=== PATIENT | male | born 1980 | race American Indian/Alaskan Native ===

== ENCOUNTER 2018-02-28 18:31 | Inpatient (IN) | payer SELFPAY ==
[2018-02-28] MEDS ORDERED: NACL 0.9% 1000 ML 1,000 ML IV ONE ×2 (19:10→19:42)
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
[2018-02-28 19:26] LABS: Basophils # (Auto) 0.1 K/mm3 (0.0-0.1); Basophils % (Auto) 0.5 % (0.0-1.8); Hematocrit 57.3 % (35.5-45.6); Hemoglobin 18.4 gm/dl (11.8-15.2); Lymphocytes # (Auto) 1.1 K/mm3 (1.2-5.4); Lymphocytes % (Auto) 7.7 % (13.4-35.0); Mean Corpuscular HGB Conc 32 % (32-34); Mean Corpuscular Hemoglobin 28 pg (28-32); Mean Corpuscular Volume 87 fl (84-94); Monocytes # (Auto) 0.6 K/mm3 (0.0-0.8); Monocytes % (Auto) 4.3 % (0.0-7.3); Platelet Count 302 K/mm3 (140-440); Red Cell Distribution Width 13.4 % (13.2-15.2)
[2018-02-28 19:36] LABS: INR 0.94 (0.87-1.13)
[2018-02-28] MEDS ORDERED: HumuLIN R IV ONE (19:43)
[2018-02-28] MEDS ORDERED: ZOFRAN IV ONE (19:44)
[2018-02-28 20:38] LABS: Bilirubin,Urine NEG (Negative); Blood,Urine NEG (Negative); Color,Urine Straw (Yellow); Mucus,Urine FEW /HPF; Protein,Urine <15 mg/dL mg/dL (Negative); Urobilinogen,Urine < 2.0 mg/dL (<2.0)
[2018-02-28 20:41] LABS: Creatine Kinase MB 1.7 ng/mL (0.0-4.0)
[2018-02-28 20:43] LABS: Alanine Aminotransferase 27 units/L (7-56); Albumin 4.6 g/dL (3.9-5); BUN/Creatinine Ratio 32; Blood Urea Nitrogen 38 mg/dL (9-20); Calcium 9.6 mg/dL (8.4-10.2); Hemolysis Index 8; Lipase 41 units/L (13-60)
--- NOTE | 2018-02-28 21:21 | Cat Scan Report ---
FINAL REPORT PROCEDURE: CT ANGIO CHEST TECHNIQUE: Computerized axial tomographic angiography of the chest and pulmonary arteries was performed after the IV injection of iodinated nonionic contrast. The image data was postprocessed using maximum intensity projection (MIP) and 2-dimensional multiplanar reformatted (MPR) techniques. The examination is specifically tailored to the evaluation of the pulmonary arteries per clinical request. HISTORY: Short of breath 786.09, chest pain 786.50, chest pain, shortness of breath COMPARISON: No prior studies are available for comparison. FINDINGS: Heart and pericardium: Normal. Thoracic aorta: Normal. Pulmonary vasculature: Normal. No pulmonary emboli. Lymph nodes: No enlarged thoracic lymph nodes. Lungs: Normal. Pleural space: No effusion, thickening, or pneumothorax. Musculoskeletal structures: No significant abnormality. Upper abdominal structures: No significant abnormality. IMPRESSION: Normal Examination.
[2018-02-28] MEDS ORDERED: ASPIRIN PO ONE (21:57)
--- NOTE | 2018-02-28 23:38 | History and Physical Report ---
History of Present Illness Date of examination: 02/28/18 History of present illness: 37-year-old male with a history of diabetes, TBI discuss emergency room with complaints of multiple episodes of nausea vomiting 4 days. He has been drinking lots of sodas and cool aid, he hasn't taken any medication in over one year for diabetes. Admits to 25 pound weight loss. He complains of chest pain in the epigastric area which she describes as a sharp pain, intermittent in nature, unable to say how long it lasts for, intensity 4/10, no radiation, he can identify exacerbating or relieving factors. Denies shortness of breath, diaphoresis or palpitation Review of systems Constitutional: no weight loss, chills, fever Ears, eyes, nose, mouth and throat: no nasal congestion, no nasal discharge, no sinus pressure, no vision change, no red eye. Neck: No neck pain or rigidity. Cardiovascular: no palpitations Respiratory: no cough, shortness of breath Gastrointestinal: no abdominal pain hematochezia Genitourinary : no frequency , no hematuria Musculoskeletal: no joint swelling or muscle ache Integumentary: no rash, no pruritis Neurological: no parathesias, no numbness, no focal weakness Endocrine: no cold or heat intolerance, no polyuria or polydipsia Hematologic/Lymphatic: no easy bruising, no easy bleeding, no gland swelling Allergic/Immunologic: no urticaria, no angioedema. PAST MEDICAL HISTORY:diabetes, TBI PAST SURGICAL HISTORY: Craniotomy SOCIAL HISTORY: No alcohol, no drugs, tobacco FAMILY HISTORY: Hypertension Medications and Allergies Allergies Allergy/AdvReac Type Severity Reaction Status Date / Time shrimp AdvReac Swelling Verified 08/09/15 08:44 Home Medications Medication Instructions Recorded Confirmed Last Taken Type glyBURIDE [Glyburide] 5 mg PO DAILY #90 tablet 08/11/15 02/28/18 Unknown Rx metFORMIN [Glucophage] 850 mg PO BID #90 tablet 08/11/15 02/28/18 Unknown Rx Exam - Physical Exam Narrative exam: Gen. appearance: Patient lying in bed, no apparent distress HEENT: Normocephalic, atraumatic, pupils equally round and reactive to light, extraocular movement intact, and no sclericterus,. No JVD or thyromegaly or nodule,neck supple, no carotid bruit ,mucous membranes moist, no exudate or erythema Heart: S1, S2, regular rate and rhythm Lungs: Clear bilaterally, breathing comfortable Abdomen: Positive bowel sounds, non-tender, nondistended, no organomegaly Extremity:no edema cyanosis, clubbing Skin: no rash, dry, warm Neuro: Oriented 3, cranial nerves II-12 intact, speech is fluent, motor and sensory intact - Constitutional Vitals: Temp Pulse Resp BP Pulse Ox 99.6 F 115 H 20 150/85 97 02/28/18 18:47 02/28/18 23:00 02/28/18 23:00 02/28/18 23:00 02/28/18 23:00 Results - Labs CBC & Chem 7: 02/28/18 19:03 02/28/18 19:13 Labs: Abnormal lab results 02/28/18 02/28/18 02/28/18 Range/Units 19:03 19:12 19:13 WBC 14.0 H (4.5-11.0) K/mm3 RBC 6.60 H (3.65-5.03) M/mm3 Hgb 18.4 H (11.8-15.2) gm/dl Hct 57.3 H (35.5-45.6) % Lymph % (Auto) 7.7 L (13.4-35.0) % Lymph # 1.1 L (1.2-5.4) K/mm3 Seg Neutrophils % 87.5 H (40.0-70.0) % Seg Neutrophils # 12.3 H (1.8-7.7) K/mm3 APTT 20.0 L (24.2-36.6) Sec. D-Dimer 633.35 H (0-234) ng/mlDDU Chloride 90.7 L (98-107) mmol/L Carbon Dioxide 19 L (22-30) mmol/L BUN 38 H (9-20) mg/dL Glucose 517 H* (75-100) mg/dL POC Glucose (70-105) Total Bilirubin 2.50 H (0.1-1.2) mg/dL 02/28/18 02/28/18 Range/Units 19:33 20:50 WBC (4.5-11.0) K/mm3 RBC (3.65-5.03) M/mm3 Hgb (11.8-15.2) gm/dl Hct (35.5-45.6) % Lymph % (Auto) (13.4-35.0) % Lymph # (1.2-5.4) K/mm3 Seg Neutrophils % (40.0-70.0) % Seg Neutrophils # (1.8-7.7) K/mm3 APTT (24.2-36.6) Sec. D-Dimer (0-234) ng/mlDDU Chloride (98-107) mmol/L Carbon Dioxide (22-30) mmol/L BUN (9-20) mg/dL Glucose (75-100) mg/dL POC Glucose 428 H 376 H (70-105) Total Bilirubin (0.1-1.2) mg/dL - Imaging and Cardiology EKG: image reviewed CT scan - chest: report reviewed Assessment and Plan Assessment Nausea and vomiting secondary to diabetes uncontrolled Chest pain Dehydration Leukocytosis likely stress induced Diabetes uncontrolled TBI Plan Admit medicine Start IV fluid antiemetics Check cardiac enzymes, stress test Check fingersticks and initiate insulin sliding scale DVT prophylaxis
[2018-03-01] MEDS ORDERED: D50W (25GM) Syringe IV PRN (03:01)
[2018-03-01] MEDS ORDERED: SODIUM CHLORIDE FLUSH SYRINGE 10 ML IV PRN (03:01)
[2018-03-01] MEDS ORDERED: TYLENOL PO PRN (03:01)
[2018-03-01] MEDS ORDERED: PERCOCET 5/325 PO PRN (03:01)
[2018-03-01] MEDS ORDERED: NACL 0.9% 1000 ML 1,000 ML IV SCH (04:00)
[2018-03-01 06:54] LABS: Basophils % (Auto) 0.2 % (0.0-1.8); Hematocrit 48.8 % (35.5-45.6); Hemoglobin 15.7 gm/dl (11.8-15.2); Lymphocytes # (Auto) 1.6 K/mm3 (1.2-5.4); Lymphocytes % (Auto) 11.2 % (13.4-35.0); Mean Corpuscular HGB Conc 32 % (32-34); Mean Corpuscular Hemoglobin 28 pg (28-32); Mean Corpuscular Volume 86 fl (84-94); Monocytes # (Auto) 0.9 K/mm3 (0.0-0.8); Monocytes % (Auto) 6.6 % (0.0-7.3); Platelet Count 262 K/mm3 (140-440); Red Blood Count 5.64 M/mm3 (3.65-5.03); Red Cell Distribution Width 13.2 % (13.2-15.2)
[2018-03-01 07:23] LABS: BUN/Creatinine Ratio 36; Blood Urea Nitrogen 29 mg/dL (9-20); Calcium 8.7 mg/dL (8.4-10.2); Hemolysis Index 10
[2018-03-01 07:24] LABS: Creatine Kinase MB 1.9 ng/mL (0.0-4.0)
[2018-03-01] MEDS: APRESOLINE IV PRN (08:35)
--- NOTE | 2018-03-01 09:15 | Progress Note ---
Assessment and Plan Assessment and plan: --Atypical chest pain; noncardiac Stress test negative, chest pain probably secondary to gastroesophageal reflux disease, continue current management --Gastroesophageal reflux disease; Protonix, supportive care --Acute bronchitis; empiric antibiotics, supportive care --Possible UTI; empiric antibiotics, follow cultures, IV fluids --Uncontrolled diabetes mellitus; secondary to noncompliance Patient was on glipizide and metformin, non-compliant. Resume oral hypoglycemics Accu-Chek sliding scale coverage and ADA diet, check A1c --Uncontrolled hypertension; noncompliance Continue current antihypertensives and when necessary medications --DVT prophylaxis; Lovenox Patient is stable to be transferred out of telemetry to medical floor Possible discharge in 1-2 days if stable History Interval history: Patient seen and examined medical records reviewed Patient had stress test which was negative for reversible ischemia Patient complains of mild discomfort in urination, as well as slight chest congestion Patient had elevated WBC, UA consistent with UTI Patient feels better complaints of generalized weakness Vital signs reviewed Hospitalist Physical - Constitutional Vitals: Temp Pulse Resp BP Pulse Ox 98.0 F 110 H 20 170/102 95 03/01/18 08:20 03/01/18 08:20 03/01/18 08:20 03/01/18 08:20 03/01/18 08:20 General appearance: Present: no acute distress, cachectic, disheveled - EENT Eyes: Present: PERRL, EOM intact - Neck Neck: Present: supple, normal ROM - Respiratory Respiratory effort: normal Respiratory: bilateral: diminished, negative: rales, rhonchi, wheezing - Cardiovascular Rhythm: regular Heart Sounds: Present: S1 & S2 - Extremities Extremities: no ischemia, No edema - Abdominal General gastrointestinal: soft, non-tender, non-distended, normal bowel sounds - Integumentary Integumentary: Present: clear, warm - Psychiatric Psychiatric: appropriate mood/affect, cooperative - Neurologic Neurologic: moves all extremities Results - Labs CBC & Chem 7: 03/01/18 06:37 03/01/18 06:37 Labs: Laboratory Last Values WBC 13.9 K/mm3 (4.5-11.0) H 03/01/18 06:37 RBC 5.64 M/mm3 (3.65-5.03) H 03/01/18 06:37 Hgb 15.7 gm/dl (11.8-15.2) H 03/01/18 06:37 Hct 48.8 % (35.5-45.6) H D 03/01/18 06:37 MCV 86 fl (84-94) 03/01/18 06:37 MCH 28 pg (28-32) 03/01/18 06:37 MCHC 32 % (32-34) 03/01/18 06:37 RDW 13.2 % (13.2-15.2) 03/01/18 06:37 Plt Count 262 K/mm3 (140-440) 03/01/18 06:37 Lymph % (Auto) 11.2 % (13.4-35.0) L 03/01/18 06:37 Brantley % (Auto) 6.6 % (0.0-7.3) 03/01/18 06:37 Eos % (Auto) 0.0 % (0.0-4.3) 03/01/18 06:37 Baso % (Auto) 0.2 % (0.0-1.8) 03/01/18 06:37 Lymph # 1.6 K/mm3 (1.2-5.4) 03/01/18 06:37 Brantley # 0.9 K/mm3 (0.0-0.8) H 03/01/18 06:37 Eos # 0.0 K/mm3 (0.0-0.4) 03/01/18 06:37 Baso # 0.0 K/mm3 (0.0-0.1) 03/01/18 06:37 Seg Neutrophils % 82.0 % (40.0-70.0) H 03/01/18 06:37 Seg Neutrophils # 11.4 K/mm3 (1.8-7.7) H 03/01/18 06:37 PT 13.0 Sec. (12.2-14.9) 02/28/18 19:12 INR 0.94 (0.87-1.13) 02/28/18 19:12 APTT 20.0 Sec. (24.2-36.6) L 02/28/18 19:12 D-Dimer 633.35 ng/mlDDU (0-234) H 02/28/18 19:12 VBG pH 7.377 (7.320-7.420) 02/28/18 19:14 Sodium 143 mmol/L (137-145) 03/01/18 06:37 Potassium 4.6 mmol/L (3.6-5.0) 03/01/18 06:37 Chloride 101.5 mmol/L (98-107) 03/01/18 06:37 Carbon Dioxide 19 mmol/L (22-30) L 03/01/18 06:37 Anion Gap 27 mmol/L 03/01/18 06:37 BUN 29 mg/dL (9-20) H 03/01/18 06:37 Creatinine 0.8 mg/dL (0.8-1.5) 03/01/18 06:37 Estimated GFR > 60 ml/min 03/01/18 06:37 BUN/Creatinine Ratio 36 % 03/01/18 06:37 Glucose 314 mg/dL (75-100) H 03/01/18 06:37 POC Glucose 287 (70-105) H 03/01/18 06:21 Calcium 8.7 mg/dL (8.4-10.2) 03/01/18 06:37 Total Bilirubin 2.50 mg/dL (0.1-1.2) H 02/28/18 19:13 AST 28 units/L (5-40) 02/28/18 19:13 ALT 27 units/L (7-56) 02/28/18 19:13 Alkaline Phosphatase 76 units/L (35-129) 02/28/18 19:13 Ammonia 44.0 umol/L (25-60) 02/28/18 19:03 Total Creatine Kinase 217 units/L (55-170) H 03/01/18 06:37 CK-MB (CK-2) 1.9 ng/mL (0.0-4.0) 03/01/18 06:37 CK-MB (CK-2) Rel Index 0.8 (0-4) 03/01/18 06:37 Troponin T < 0.010 ng/mL (0.00-0.029) 03/01/18 06:37 Total Protein 8.0 g/dL (6.3-8.2) 02/28/18 19:13 Albumin 4.6 g/dL (3.9-5) 02/28/18 19:13 Albumin/Globulin Ratio 1.4 % 02/28/18 19:13 Lipase 41 units/L (13-60) 02/28/18 19:13 Urine Color Straw (Yellow) 02/28/18 20:07 Urine Turbidity Clear (Clear) 02/28/18 20:07 Urine pH 5.0 (5.0-7.0) 02/28/18 20:07 Ur Specific Silvis 1.029 (1.003-1.030) 02/28/18 20:07 Urine Protein <15 mg/dl mg/dL (Negative) 02/28/18 20:07 Urine Glucose (UA) >=500 mg/dL (Negative) 02/28/18 20:07 Urine Ketones 80 mg/dL (Negative) 02/28/18 20:07 Urine Blood Neg (Negative) 02/28/18 20:07 Urine Nitrite Neg (Negative) 02/28/18 20:07 Urine Bilirubin Neg (Negative) 02/28/18 20:07 Urine Urobilinogen < 2.0 mg/dL (<2.0) 02/28/18 20:07 Ur Leukocyte Esterase Neg (Negative) 02/28/18 20:07 Urine WBC (Auto) 2.0 /HPF (0.0-6.0) 02/28/18 20:07 Urine RBC (Auto) 3.0 /HPF (0.0-6.0) 02/28/18 20:07 U Epithel Cells (Auto) < 1.0 /HPF (0-13.0) 02/28/18 20:07 Urine Mucus Few /HPF 02/28/18 20:07
[2018-03-01] MEDS ORDERED: LEXISCAN IV ONE ×2 (09:19→09:24)
[2018-03-01] MEDS: ZOFRAN IV PRN (10:17)
[2018-03-01] MEDS ORDERED: ZOFRAN ONE (10:18)
[2018-03-01] MEDS ORDERED: PNEUMOVAX 23 IM ONE (12:00)
[2018-03-01] MEDS: SODIUM CHLORIDE FLUSH SYRINGE 10 ML IV SCH ×2 (15:46→22:41)
[2018-03-01] MEDS: LOVENOX SUB-Q SCH (15:46)
[2018-03-01] MEDS ORDERED: GLUCOPHAGE PO ONE (17:23)
[2018-03-01] MEDS: ZESTRIL PO SCH (22:41)
[2018-03-02] MEDS: HumaLOG SUB-Q SCH ×5 (00:13→21:27)
--- NOTE | 2018-03-02 00:45 | Treadmill Report ---
THALLIUM STRESS TEST LEFT VENTRICLE: Left ventricular chamber size is within normal spread. Perfusion study demonstrates homogeneous uptake of the tracer in all segments, no significant perfusion defects identified. Gated analysis demonstrates normal left ventricular systolic function, ejection fraction of 60%. CONCLUSION: Normal myocardial perfusion study. JOB# [id number] CA/NTS
[2018-03-02] MEDS: APRESOLINE IV PRN (02:22)
[2018-03-02 06:33] LABS: Basophils % (Auto) 0.1 % (0.0-1.8); Eosinophils # (Auto) 0.1 K/mm3 (0.0-0.4); Eosinophils % (Auto) 0.5 % (0.0-4.3); Hemoglobin 15.2 gm/dl (11.8-15.2); Lymphocytes % (Auto) 17.9 % (13.4-35.0); Mean Corpuscular HGB Conc 33 % (32-34); Mean Corpuscular Hemoglobin 28 pg (28-32); Mean Corpuscular Volume 85 fl (84-94); Monocytes # (Auto) 0.7 K/mm3 (0.0-0.8); Monocytes % (Auto) 6.5 % (0.0-7.3); Platelet Count 236 K/mm3 (140-440); Red Blood Count 5.44 M/mm3 (3.65-5.03); Red Cell Distribution Width 12.8 % (13.2-15.2)
[2018-03-02 07:00] LABS: BUN/Creatinine Ratio 31; Blood Urea Nitrogen 22 mg/dL (9-20); Calcium 8.5 mg/dL (8.4-10.2); Hemolysis Index 7
[2018-03-02] MEDS ORDERED: GLUCOPHAGE PO SCH ×2 (08:00→11:22)
[2018-03-02] MEDS: LOVENOX SUB-Q SCH (09:25)
[2018-03-02] MEDS: HCTZ PO SCH (09:26)
[2018-03-02] MEDS: ZESTRIL PO SCH ×2 (09:26→21:28)
[2018-03-02] MEDS: ZOFRAN IV PRN (09:27)
[2018-03-02] MEDS: DIABETA PO SCH ×2 (09:27→17:35)
[2018-03-02] MEDS: SODIUM CHLORIDE FLUSH SYRINGE 10 ML IV SCH ×2 (09:29→21:29)
--- NOTE | 2018-03-02 16:43 | Progress Note ---
Assessment and Plan Assessment and plan: --Acute bronchitis; empiric antibiotics, supportive care --Possible UTI; empiric antibiotics, follow cultures, IV fluids --Uncontrolled diabetes mellitus; secondary to noncompliance Patient was on glipizide and metformin, non-compliant. Resume oral hypoglycemics Accu-Chek sliding scale coverage and ADA diet, check A1c 8.2 --Atypical chest pain; noncardiac Stress test negative, chest pain probably secondary to gastroesophageal reflux disease, , continue current management --Gastroesophageal reflux disease; Protonix, supportive care --Uncontrolled hypertension; noncompliance Continue current antihypertensives and when necessary medications --Medical noncompliance; counseling done patient strongly advised to adhere to treatment diet --DVT prophylaxis; Lovenox History Interval history: Patient Seen and examined medical records reviewed Patient complains of generalized body pains, discomfort urination UTI on empiric antibiotics, complaints of generalized weakness Alert awake oriented 3 Clinical signs reviewed Blood sugars are uncontrolled Hospitalist Physical - Constitutional Vitals: Temp Pulse Resp BP Pulse Ox 99.2 F 111 H 20 128/77 97 03/02/18 05:21 03/02/18 09:26 03/02/18 08:42 03/02/18 09:26 03/02/18 05:21 General appearance: Present: no acute distress, cachectic, disheveled - EENT Eyes: Present: PERRL, EOM intact - Neck Neck: Present: supple, normal ROM - Respiratory Respiratory effort: normal Respiratory: negative: diminished, rales, rhonchi - Cardiovascular Rhythm: regular Heart Sounds: Present: S1 & S2 - Extremities Extremities: no ischemia, No edema - Abdominal General gastrointestinal: soft, non-tender, non-distended, normal bowel sounds - Integumentary Integumentary: Present: clear, warm - Psychiatric Psychiatric: appropriate mood/affect, cooperative - Neurologic Neurologic: CNII-XII intact, moves all extremities Results - Labs CBC & Chem 7: 03/02/18 06:03 03/02/18 06:03 Labs: Laboratory Last Values WBC 11.3 K/mm3 (4.5-11.0) H 03/02/18 06:03 RBC 5.44 M/mm3 (3.65-5.03) H 03/02/18 06:03 Hgb 15.2 gm/dl (11.8-15.2) 03/02/18 06:03 Hct 46.0 % (35.5-45.6) H 03/02/18 06:03 MCV 85 fl (84-94) 03/02/18 06:03 MCH 28 pg (28-32) 03/02/18 06:03 MCHC 33 % (32-34) 03/02/18 06:03 RDW 12.8 % (13.2-15.2) L 03/02/18 06:03 Plt Count 236 K/mm3 (140-440) 03/02/18 06:03 Lymph % (Auto) 17.9 % (13.4-35.0) 03/02/18 06:03 [place] % (Auto) 6.5 % (0.0-7.3) 03/02/18 06:03 Eos % (Auto) 0.5 % (0.0-4.3) 03/02/18 06:03 Baso % (Auto) 0.1 % (0.0-1.8) 03/02/18 06:03 Lymph # 2.0 K/mm3 (1.2-5.4) 03/02/18 06:03 [place] # 0.7 K/mm3 (0.0-0.8) 03/02/18 06:03 Eos # 0.1 K/mm3 (0.0-0.4) 03/02/18 06:03 Baso # 0.0 K/mm3 (0.0-0.1) 03/02/18 06:03 Seg Neutrophils % 75.0 % (40.0-70.0) H 03/02/18 06:03 Seg Neutrophils # 8.4 K/mm3 (1.8-7.7) H 03/02/18 06:03 PT 13.0 Sec. (12.2-14.9) 02/28/18 19:12 INR 0.94 (0.87-1.13) 02/28/18 19:12 APTT 20.0 Sec. (24.2-36.6) L 02/28/18 19:12 D-Dimer 633.35 ng/mlDDU (0-234) H 02/28/18 19:12 VBG pH 7.377 (7.320-7.420) 02/28/18 19:14 Sodium 133 mmol/L (137-145) L D 03/02/18 06:03 Potassium 4.0 mmol/L (3.6-5.0) 03/02/18 06:03 Chloride 92.7 mmol/L (98-107) L 03/02/18 06:03 Carbon Dioxide 24 mmol/L (22-30) 03/02/18 06:03 Anion Gap 20 mmol/L 03/02/18 06:03 BUN 22 mg/dL (9-20) H 03/02/18 06:03 Creatinine 0.7 mg/dL (0.8-1.5) L 03/02/18 06:03 Estimated GFR > 60 ml/min 03/02/18 06:03 BUN/Creatinine Ratio 31 % 03/02/18 06:03 Glucose 319 mg/dL (75-100) H 03/02/18 06:03 POC Glucose 207 (70-105) H 03/02/18 16:19 Hemoglobin A1c 14.2 % (4-6) H 03/02/18 06:03 Calcium 8.5 mg/dL (8.4-10.2) 03/02/18 06:03 Total Bilirubin 2.50 mg/dL (0.1-1.2) H 02/28/18 19:13 AST 28 units/L (5-40) 02/28/18 19:13 ALT 27 units/L (7-56) 02/28/18 19:13 Alkaline Phosphatase 76 units/L (35-129) 02/28/18 19:13 Ammonia 44.0 umol/L (25-60) 02/28/18 19:03 Total Creatine Kinase 217 units/L (55-170) H 03/01/18 06:37 CK-MB (CK-2) 1.9 ng/mL (0.0-4.0) 03/01/18 06:37 CK-MB (CK-2) Rel Index 0.8 (0-4) 03/01/18 06:37 Troponin T < 0.010 ng/mL (0.00-0.029) 03/01/18 06:37 Total Protein 8.0 g/dL (6.3-8.2) 02/28/18 19:13 Albumin 4.6 g/dL (3.9-5) 02/28/18 19:13 Albumin/Globulin Ratio 1.4 % 02/28/18 19:13 Lipase 41 units/L (13-60) 02/28/18 19:13 Urine Color Straw (Yellow) 02/28/18 20:07 Urine Turbidity Clear (Clear) 02/28/18 20:07 Urine pH 5.0 (5.0-7.0) 02/28/18 20:07 Ur Specific [place] 1.029 (1.003-1.030) 02/28/18 20:07 Urine Protein <15 mg/dl mg/dL (Negative) 02/28/18 20:07 Urine Glucose (UA) >=500 mg/dL (Negative) 02/28/18 20:07 Urine Ketones 80 mg/dL (Negative) 02/28/18 20:07 Urine Blood Neg (Negative) 02/28/18 20:07 Urine Nitrite Neg (Negative) 02/28/18 20:07 Urine Bilirubin Neg (Negative) 02/28/18 20:07 Urine Urobilinogen < 2.0 mg/dL (<2.0) 02/28/18 20:07 Ur Leukocyte Esterase Neg (Negative) 02/28/18 20:07 Urine WBC (Auto) 2.0 /HPF (0.0-6.0) 02/28/18 20:07 Urine RBC (Auto) 3.0 /HPF (0.0-6.0) 02/28/18 20:07 U Epithel Cells (Auto) < 1.0 /HPF (0-13.0) 02/28/18 20:07 Urine Mucus Few /HPF 02/28/18 20:07
[2018-03-02] MEDS: GLUCOPHAGE PO SCH (17:34)
[2018-03-03] MEDS: ZOFRAN IV PRN (06:42)
[2018-03-03] MEDS: HumaLOG SUB-Q SCH ×3 (08:46→17:16)
[2018-03-03] MEDS: DIABETA PO SCH ×2 (08:46→17:18)
[2018-03-03] MEDS: GLUCOPHAGE PO SCH ×2 (08:46→17:15)
[2018-03-03] MEDS: ZESTRIL PO SCH (12:04)
[2018-03-03] MEDS: LOVENOX SUB-Q SCH (12:05)
[2018-03-03] MEDS: SODIUM CHLORIDE FLUSH SYRINGE 10 ML IV SCH (12:05)
[2018-03-03] MEDS: HCTZ PO SCH (12:06)
--- NOTE | 2018-03-03 16:26 | Discharge Summary ---
Providers - Providers Date of Admission: 02/28/18 23:38 Date of discharge: 03/03/18 Attending physician: MARCIO RAMIREZ Primary care physician: MELVI WALDRON MD Hospitalization Condition: Fair Disposition: DC-01 TO HOME OR SELFCARE Time spent for discharge: 32 min Core Measure Documentation - Palliative Care Palliative Care/ Comfort Measures: Not Applicable - Core Measures Any of the following diagnoses?: none Exam - Constitutional Vitals: Temp Pulse Resp BP Pulse Ox 97.9 F 119 H 16 110/77 98 03/03/18 12:03/03/18 12:03/03/18 12:03/03/18 12:03/03/18 12:09 General appearance: Present: no acute distress, well-nourished - EENT Eyes: Present: PERRL, EOM intact - Neck Neck: Present: supple, normal ROM - Respiratory Respiratory effort: normal Respiratory: negative: rales, rhonchi, wheezing - Cardiovascular Rhythm: regular Heart Sounds: Present: S1 & S2 - Extremities Extremities: no ischemia, No edema - Abdominal General gastrointestinal: Present: soft, non-tender, non-distended, normal bowel sounds - Integumentary Integumentary: Present: clear, warm - Musculoskeletal Musculoskeletal: strength equal bilaterally - Psychiatric Psychiatric: appropriate mood/affect, cooperative - Neurologic Neurologic: CNII-XII intact, moves all extremities Plan Activity: no restrictions Diet: diabetic Additional Instructions: Advised to follow primary care physician/[facility] in 3-4days. Advised 2 days work excuse 03/03 and 03/04/18. Advised to comply with medications, diet, and follow-up visits with primary care physician Follow up with: PRIMARY CARE, [Primary Care Provider] - 3-5 Days Prescriptions: glyBURIDE [Diabeta] 5 mg PO BIDDIAB #60 tablet hydroCHLOROthiazide [HCTZ] 25 mg PO QDAY #30 tablet Lisinopril [Zestril TAB] 10 mg PO BID #60 tablet Metformin HCl [Glucophage] 1,000 mg PO BID #60 tablet
[2018-03-03 18:34] VITALS: BP 135/87
== END 2018-03-03 20:30 | disposition home or self-care (01) | DRG 202 ==
LOC: ED 18:31 → 4A 23:38 → 3A 03-01 21:19
PROVIDERS: ADMIT Internal Medicine; ATTEND Internal Medicine
PROC: 3E0234Z Introduction of Serum, Toxoid and Vaccine into Muscle, Percutaneous Approach (ICD-10-PCS; principal; 2018-03-01)
DX: J20.9 Acute bronchitis, unspecified (principal); N39.0 Urinary tract infection, site not specified; E11.65 Type 2 diabetes mellitus with hyperglycemia; R07.89 Other chest pain; I10 Essential (primary) hypertension; S06.9X0A Unspecified intracranial injury without loss of consciousness, initial encounter; K21.9 Gastro-esophageal reflux disease without esophagitis; E86.0 Dehydration; D72.829 Elevated white blood cell count, unspecified; R00.0 Tachycardia, unspecified; X58.XXXA Exposure to other specified factors, initial encounter; Z91.013 Allergy to seafood; Y93.89 Activity, other specified; Z91.14 Patient's other noncompliance with medication regimen; Z71.89 Other specified counseling; Z82.49 Family history of ischemic heart disease and other diseases of the circulatory system; Z79.899 Other long term (current) drug therapy; Y92.89 Other specified places as the place of occurrence of the external cause; Y99.8 Other external cause status; Z23 Encounter for immunization
CPT/HCPCS: 36415; 71275; 78452; 80048; 80053; 81001; 82140; 82550; 82553; 82805; 82962; 83036; 83690; 84484; 85025; 85379; 85610; 85730; 90732; 93005; 93010; 93017; 96361; 96374; 96375; A9502; J0360; J1650; J1815; J2405; J2785; J7030; Q9967